=== PATIENT | male | born 1995 | race Two or more races ===

== ENCOUNTER 2019-07-22 12:04 | Emergency (ER) | payer MEDICAID ==
[~2019-07-22] VITALS: Ht 170.2 cm; Wt 68.0 kg
[2019-07-22 12:57] VITALS: BP 115/64
[2019-07-22 12:57] LABS: Urine Bacteria NONE SEEN /hpf (None Seen); Urine Blood Negative /uL (Negative); Urine WBC <1 /hpf (0 - 3)
[2019-07-22] MEDS ORDERED: LACTULOSE 20Gm/30ML SOLN PO ONE (14:30)
== END 2019-07-22 14:54 | disposition home or self-care (01) ==
LOC: ER 12:04
DX: K59.00 Constipation, unspecified (principal)
CPT/HCPCS: 74018; 81001